=== PATIENT | male | born 1950 | race Caucasian/White ===

== ENCOUNTER 2017-04-01 18:33 | Emergency (ER) | payer MEDICARE, BC ==
[2017-04-01] MEDS ORDERED: Ondansetron 4 MG Tab.DIS PO ONE (18:34)
[2017-04-01] MEDS ORDERED: Ondansetron 4 MG/2 ML SDV IV ONE (18:57)
[2017-04-01] MEDS ORDERED: Sodium Chloride 0.9% 1,000 ML IV ONE ×2 (18:57→21:09)
--- NOTE | 2017-04-01 19:02 | EDM.PDOC ---
ED HPI GENERAL MEDICAL PROBLEM - General Chief Complaint: Gastrointestinal Problem Stated Complaint: AMBULANCE Time Seen by Provider: 04/01/17 18:55 Source of Information: Reports: Patient History Limitations: Reports: No Limitations - History of Present Illness INITIAL COMMENTS - FREE TEXT/NARRATIVE: This 67 yo male patient was brought to the ED by [facility] due to lightheadedness, nausea/vomiting and diarrhea. The patient reports his symptoms started on Sunday and have continued throughout the weekend. The patient reports that earlier today, he passed out when he stood up. The patient reports he has had a 45 year history of loose bowel movement. The patient reports he got lightheaded last week and had a near syncopial episode at that time. The patient reports he has had his flu shot this year. The patient reports he has not been able to keep anything down since . Onset Date: 03/30/17 Duration: Day(s):, Constant, Getting Worse Location: Reports: Generalized Quality: Reports: Other Severity: Moderate Improves with: Reports: None Worsens with: Reports: None Associated Symptoms: Reports: Nausea/Vomiting, Syncope, Other (diarrhea) Middle Epigastric Pain Score (Numeric/FACES): 2 - Related Data Allergies Allergy/AdvReac Type Severity Reaction Status Date / Time No Known Allergies Allergy Verified 04/01/17 18:49 Past Medical History Cardiovascular History: Reports: Hypertension Endocrine/Metabolic History: Reports: Diabetes, Type II Social & Family History - Tobacco Use Smoking Status *Q: Never Smoker - Caffeine Use Caffeine Use: Reports: Coffee, Soda, Tea - Recreational Drug Use Recreational Drug Use: No ED ROS GENERAL - Review of Systems Review Of Systems: ROS reveals no pertinent complaints other than HPI. ED EXAM, GI/ABD - Physical Exam Exam: See Below Exam Limited By: No Limitations General Appearance: Alert, WD/WN, Mild Distress, Thin Eyes: Bilateral: Normal Appearance, EOMI Ears: Normal External Exam, Normal Canal, Hearing Grossly Normal, Normal TMs Nose: Normal Inspection, Normal Mucosa, No Blood Throat/Mouth: Normal Inspection, Normal Lips, Normal Teeth, Normal Gums, Normal Oropharynx, Normal Voice, No Airway Compromise Head: Atraumatic, Normocephalic Neck: Normal Inspection, Supple, Non-Tender, Full Range of Motion Respiratory/Chest: No Respiratory Distress, Lungs Clear, Normal Breath Sounds, No Accessory Muscle Use, Chest Non-Tender Cardiovascular: Normal Peripheral Pulses, Regular Rate, Rhythm, No Edema, No Gallop, No JVD, No Murmur, No Rub GI/Abdominal Exam: Normal Bowel Sounds, Soft, Non-Tender, No Organomegaly, No Distention, No Abnormal Bruit, Pelvis Stable (Male) Exam: Deferred Rectal (Males) Exam: Deferred Back Exam: Normal Inspection, Full Range of Motion, NT Extremities: Normal Inspection, Normal Range of Motion, Non-Tender, Normal Capillary Refill, No Pedal Edema Neurological: Alert, Oriented, CN II-XII Intact, Normal Cognition, Normal Gait, Normal Reflexes, No Motor/Sensory Deficits Psychiatric: Normal Affect, Normal Mood Skin Exam: Warm, Dry, Intact, Normal Color, No Rash Lymphatic: No Adenopathy Course - Vital Signs Last Recorded V/S: Last Vital Signs Temp 37.2 C 04/01/17 21:33 Pulse 86 04/01/17 21:33 Resp 16 04/01/17 21:33 BP 103/46 L 04/01/17 21:33 Pulse Ox 99 04/01/17 21:33 - Orders/Labs/Meds Labs: Laboratory Tests 04/01/17 04/01/17 04/01/17 Range/Units 18:55 18:55 21:54 WBC 11.9 H (5.0-10.0) 10^3/uL RBC 5.64 (4.6-6.2) 10^6/uL Hgb 16.4 (14.0-18.0) g/dL Hct 47.3 (40.0-54.0) % MCV 83.9 (80-100) fL MCH 29.1 (27.0-34.0) pg MCHC 34.7 (33.0-35.0) g/dL Plt Count 218 (150-450) 10^3/uL Neut % (Auto) 76.4 H (42.2-75.2) % Lymph % (Auto) 12.2 L (20.5-50.1) % [place] % (Auto) 11.1 H (2-8) % Eos % (Auto) 0.0 L (1.0-3.0) % Baso % (Auto) 0.3 (0.0-1.0) % Sodium 133 L (135-145) mmol/L Potassium 4.1 (3.6-5.0) mmol/L Chloride 93 L (101-111) mmol/L Carbon Dioxide 22.0 (21.0-31.0) mmol/L Anion Gap 22.1 BUN 46 H (7-18) mg/dL Creatinine 1.4 H (0.6-1.3) mg/dL Est Cr Clr Drug Dosing 49.80 mL/min Estimated GFR (MDRD) 50 BUN/Creatinine Ratio 32.85 Glucose 265 H (74-105) mg/dL Calcium 7.8 L (8.4-10.2) mg/dl Total Bilirubin 0.8 (0.2-1.0) mg/dL AST 28 (10-42) IU/L ALT 18 (10-60) IU/L Alkaline Phosphatase 38 L (42-121) IU/L Total Protein 6.3 L (6.7-8.2) g/dl Albumin 3.3 (3.2-5.5) g/dl Globulin 3.0 Albumin/Globulin Ratio 1.10 Urine Color Yellow (YELLOW) Urine Appearance Slightly cloudy (CLEAR) Urine pH 5.0 (5.0-9.0) Ur Specific [place] 1.020 (1.005-1.030) Urine Protein Negative (NEGATIVE) Urine Glucose (UA) >=1000 H (NEGATIVE) Urine Ketones 15 H (NEGATIVE) Urine Occult Blood Negative (NEGATIVE) Urine Nitrite Negative (NEGATIVE) Urine Bilirubin Small H (NEGATIVE) Urine Urobilinogen 0.2 (0.2-1.0) mg/dL Ur Leukocyte Esterase Negative (NEGATIVE) Urine RBC 0-5 /HPF Urine WBC 0-5 (0-5/HPF) /HPF Ur Epithelial Cells Few /HPF Urine Bacteria Moderate H (0-FEW/HPF) /HPF Meds: Medications Discontinued Medications Generic Name Dose Route Start Last Admin Trade Name Freq PRN Reason Stop Dose Admin Sodium Chloride 1,000 mls @ 999 mls/hr 04/01/17 18:57 04/01/17 19:16 Normal Saline IV 04/01/17 19:57 999 mls/hr .BOLUS ONE Administration Sodium Chloride 1,000 mls @ 999 mls/hr 04/01/17 21:09 04/01/17 21:22 Normal Saline IV 04/01/17 22:09 999 mls/hr .BOLUS ONE Administration Iopamidol 75 ml 04/01/17 20:05 04/01/17 20:11 Isovue-300 (61%) IVPUSH 04/01/17 20:06 75 ml ONETIME ONE Administration Ondansetron HCl 4 mg 04/01/17 18:57 04/01/17 19:16 Zofran IV 04/01/17 18:58 4 mg ONETIME ONE Administration - Re-Assessments/Exams Free Text/Narrative Re-Assessment/Exam: 04/01/17 21:15 Discussed the lab and CT results with the patient. The patient reports he is feeling better. A second liter of IV fluid was ordered for the patient. Departure - Departure Time of Disposition: 22:24 Disposition: Home, Self-Care 01 Condition: Poor Clinical Impression: Gastroenteritis - Discharge Information Instructions: Gastritis, Adult, [id number] Forms: ED Department Discharge Care Plan Goals: The patient was advised of the examination, lab and CT results during the visit. The patient was given 2 liters of IV fluids and a dose of IV Zofran while in the ED. The patient was discharged with Zofran ODT (4 mg) #2 to take 1 by mouth every 6 hours as needed for nausea and a script for Zofran ODT (4 mg) # 20 to take 1 by mouth every 6 hours as needed for nausea. The patient was encouraged to stick to a BRAT diet (Bananas, Rice, Applesauce and [place]) with small frequent sips of fluids. If the patient has any additional symptoms or further concerns, the patient should follow-up with his primary care facility or return to the emergency department.
[2017-04-01] MEDS ORDERED: Iopamidol 612 MG/ML 75 ML Bottle IVPUSH ONE (20:05)
[2017-04-01] MEDS ORDERED: Ondansetron 4 MG Tab.DIS ONE (22:28)
== END 2017-04-01 22:37 | disposition home or self-care (01) ==
LOC: DL.ED 18:33
DX: K52.9 Noninfective gastroenteritis and colitis, unspecified (principal); I10 Essential (primary) hypertension; E11.9 Type 2 diabetes mellitus without complications
CPT/HCPCS: 36415; 74176; 80053; 81001; 85025; 87804; 96361; 96374; 99284; J2405; J7030; A9270-GY; Q9967

== ENCOUNTER 2020-12-02 12:21 | Emergency (ER) | payer MEDICARE, BC ==
--- NOTE | 2020-12-02 12:38 | EDM.PDOC ---
ED HPI GENERAL MEDICAL PROBLEM - General Chief Complaint: General Stated Complaint: DEHYDRATED/ ALMOST PASSED OUT Time Seen by Provider: 12/02/20 12:38 Source of Information: Reports: Patient, Family, Old Records, RN History Limitations: Reports: No Limitations - History of Present Illness INITIAL COMMENTS - FREE TEXT/NARRATIVE: Pt presents to ER from home by POV with c/o lightheadedness, generalized weakness, and feeling "dehydrated". Symptoms began yesterday, and worsened today. During the night he report have one large formed very dark, blackish stool. Today upon standing he experienced a near syncope and fell onto his back but did not lose consciousness. Pt c/o B/L flank pain since the fall. Denies chest pain, palpitations, shortness of breath, N/V, fevers, or chills, or abdominal pain. Onset: Gradual Duration: Constant, Getting Worse Location: Reports: Back, Generalized Quality: Reports: Ache Severity: Severe Improves with: Reports: None Worsens with: Reports: Movement Associated Symptoms: Reports: No Other Symptoms Lower Back Pain Score (Numeric/FACES): 8 - Related Data Allergies Allergy/AdvReac Type Severity Reaction Status Date / Time No Known Allergies Allergy Verified 12/02/20 12:42 Home Meds: Home Meds Clopidogrel [Plavix] 75 mg PO DAILY 12/02/20 [History] Empagliflozin [Jardiance] 25 mg PO DAILY 12/02/20 [History] Fenofibrate,Micronized [Fenofibrate] 134 mg PO DAILY 12/02/20 [History] Insulin Glargine,Hum.Rec.Anlog [Basaglar Kwikpen U-100] 37 unit SQ BEDTIME 12/02/20 [History] atorvaSTATin [Lipitor] 40 mg PO BEDTIME 12/02/20 [History] hydroCHLOROthiazide [Hydrochlorothiazide] 25 mg PO DAILY 12/02/20 [History] metFORMIN HCl [Metformin HCl] 1,000 mg PO DAILY 12/02/20 [History] Past Medical History Cardiovascular History: Reports: CAD, Hypertension, Stents Endocrine/Metabolic History: Reports: Diabetes, Type II Social & Family History - Family History Family Medical History: No Pertinent Family History - Caffeine Use Caffeine Use: Reports: Coffee, Soda, Tea - Living Situation & Occupation Living situation: Reports: with Significant Other Occupation: Retired ED ROS GENERAL - Review of Systems Review Of Systems: Comprehensive ROS is negative, except as noted in HPI. ED EXAM, GENERAL - Physical Exam Exam: See Below Exam Limited By: No Limitations General Appearance: Alert, WD/WN, No Apparent Distress Eye Exam: Bilateral Eye: Normal Inspection (No scleral icterus) Nose: Normal Inspection, Normal Mucosa, No Blood Throat/Mouth: Normal Lips, Normal Teeth, Normal Gums, Normal Oropharynx, Normal Voice, No Airway Compromise, Other (Dry oral mucus membranes) Head: Atraumatic, Normocephalic Neck: Normal Inspection, Supple, Non-Tender, Full Range of Motion Respiratory/Chest: No Respiratory Distress, Lungs Clear, Normal Breath Sounds, No Accessory Muscle Use, Chest Non-Tender Cardiovascular: Normal Peripheral Pulses, Regular Rate, Rhythm, No Edema, No Gallop, No JVD, No Murmur, No Rub GI/Abdominal: Normal Bowel Sounds, Soft, Non-Tender, No Organomegaly, No Distention, No Abnormal Bruit, No Mass (Male) Exam: Deferred Rectal (Males) Exam: Normal Rectal Tone, Black Stool, Heme + Stool Back Exam: Full Range of Motion, CVA Tenderness (L) (mild), CVA Tenderness (R) (mild), Muscle Spasm. No: Vertebral Tenderness Extremities: Normal Inspection, Normal Range of Motion, Non-Tender, Normal Capillary Refill, No Pedal Edema Neurological: Alert, Oriented, CN II-XII Intact, Normal Cognition, Normal Gait, No Motor/Sensory Deficits Psychiatric: Normal Affect, Normal Mood Skin Exam: Warm, Dry, Intact, Normal Color, No Rash. No: Ecchymosis, Jaundice, Petechiae #1 Interpretation EKG Date: 12/02/20 Time: 13:09 Rhythm: Other (SR) Rate (Beats/Min): 80 [place]: LAD-Left [place] Deviation P-Wave: Present QRS: Normal ST-T: Normal QT: Normal [place]/PQ Interval: Borderline short [place] interval Comparison: NA - No Prior EKG Course - Vital Signs Last Recorded V/S: Last Vital Signs Temp 97.8 F 12/02/20 12:34 Pulse 93 12/02/20 12:34 Resp 20 12/02/20 12:34 BP 143/63 H 12/02/20 12:34 Pulse Ox 100 12/02/20 12:34 Orthostatic Blood Pressure [ 79/44 Standing] Orthostatic Blood Pressure [ 105/56 Sitting] Orthostatic Blood Pressure [ 144/62 Supine] Positive orthostatic dizziness. - Orders/Labs/Meds Orders: Active Orders 24 hr Category Date Time Status EKG 12 Lead [EKG Documentation Completion] [RC] STAT Care 12/02/20 13:02 Active Orthostatic Vital Signs [RC] ASDIRECTED Care 12/02/20 13:04 Active Peripheral IV Care [RC] . DIRECTED Care 12/02/20 13:04 Active UA RFX HUI AND CULT IF INDIC [URIN] Stat Lab 12/02/20 13:03 Ordered Pantoprazole [ProTONIX IV] 40 mg Med 12/02/20 13:45 Active Sodium Chloride 0.9% [Normal Saline] 100 ml IV .CONTINUOS Sodium Chloride 0.9% [Saline Flush] Med 12/02/20 13:03 Active 10 ml FLUSH ASDIRECTED PRN Peripheral IV Insertion Adult [OM.PC] Stat Oth 12/02/20 13:02 Ordered Medication Orders Pantoprazole Sodium 40 mg/ (Sodium Chloride) 100 mls @ 20 mls/hr IV .CONTINUOS OLI Last Admin: 12/02/20 13:57 Dose: 20 mls/hr Documented by: JOHANNA Sodium Chloride (Sodium Chloride 0.9% 10 Ml Syringe) 10 ml FLUSH ASDIRECTED PRN PRN Reason: Keep Vein Open Last Admin: 12/02/20 13:57 Dose: 10 ml Documented by: JOHANNA Labs: Laboratory Tests 12/02/20 12/02/20 12/02/20 Range/Units 13:09 13:09 13:09 WBC 15.6 H (5.0-10.0) 10^3/uL RBC 3.36 L (4.6-6.2) 10^6/uL Hgb 9.6 L D (14.0-18.0) g/dL Hct 29.2 L (40.0-54.0) % MCV 86.9 (80-100) fL MCH 28.6 (27.0-34.0) pg MCHC 32.9 L (33.0-35.0) g/dL Plt Count 287 (150-450) 10^3/uL Neut % (Auto) 81.2 H (42.2-75.2) % Lymph % (Auto) 10.4 L (20.5-50.1) % [place] % (Auto) 7.8 (2-8) % Eos % (Auto) 0.2 L (1.0-3.0) % Baso % (Auto) 0.4 (0.0-1.0) % PT 10.7 (9.0-12.0) SEC INR 1.1 (0.9-1.2) APTT 19.4 L (22.0-34.0) SEC Sodium 138 (136-145) mmol/L Potassium 3.4 L (3.5-5.1) mmol/L Chloride 99 (98-107) mmol/L Carbon Dioxide 28 (21-32) mmol/L Anion Gap 14.4 H (7-13) mEq/L BUN 41 H (7-18) mg/dL Creatinine 1.20 (0.70-1.30) mg/dL Est Cr Clr Drug Dosing 53.83 mL/min Estimated GFR (MDRD) 60 BUN/Creatinine Ratio 34.2 (No establ ref range) Glucose 170 H (70-99) mg/dL Calcium 8.5 (8.5-10.1) mg/dL Magnesium 2.1 (1.8-2.4) mg/dL Total Bilirubin 0.8 (0.2-1.0) mg/dL AST 28 (15-37) U/L ALT 35 (16-63) U/L Alkaline Phosphatase 49 (46-116) U/L Troponin I High Sens 12 (<=76) pg/mL Total Protein 6.2 L (6.4-8.2) g/dL Albumin 3.3 L (3.4-5.0) g/dL Globulin 2.9 Albumin/Globulin Ratio 1.14 Amylase 71 (25-115) U/L Lipase 134 (73-393) U/L HEMOCCULT: POSITIVE Meds: Medications Generic Name Dose Route Start Last Admin Trade Name Freq PRN Reason Stop Dose Admin Pantoprazole Sodium 40 mg/ 100 mls @ 20 mls/hr 12/02/20 13:45 12/02/20 13:57 Sodium Chloride IV 20 mls/hr .CONTINUOS OLI Administration Sodium Chloride 10 ml 12/02/20 13:03 12/02/20 13:57 Sodium Chloride 0.9% 10 Ml Syringe FLUSH 10 ml ASDIRECTED PRN Administration Keep Vein Open Discontinued Medications Generic Name Dose Route Start Last Admin Trade Name Freq PRN Reason Stop Dose Admin Sodium Chloride 1,000 mls @ 999 mls/hr 12/02/20 13:03 12/02/20 13:38 Normal Saline IV 12/02/20 14:03 999 mls/hr .BOLUS ONE Administration Pantoprazole Sodium 80 mg 12/02/20 13:31 12/02/20 13:49 Pantoprazole 40 Mg Vial IVPUSH 12/02/20 13:32 80 mg .BOLUS ONE Administration - Re-Assessments/Exams Free Text/Narrative Re-Assessment/Exam: 12/02/20 14:[address] [facility] Dr. Dsouza accepts pt as a direct admit to [facility]. Departure - Departure Time of Disposition: 14:43 Disposition: DC/Tfer to [facility] 02 Condition: Serious Clinical Impression: Upper GI bleed, Postural dizziness with near syncope - Discharge Information *PRESCRIPTION DRUG MONITORING PROGRAM REVIEWED*: Not Applicable *COPY OF PRESCRIPTION DRUG MONITORING REPORT IN PATIENT EDYTA: Not Applicable Forms: ED Department Discharge, Interfacility Transfer EMTALA Sepsis Event Note (ED) - Focused Exam Vital Signs: Vital Signs Temp Pulse Resp BP Pulse Ox 12/02/20 12:34 97.8 F 93 20 143/63 H 100 - My Orders Last 24 Hours: My Active Orders 12/02/20 13:02 EKG 12 Lead [EKG Documentation Completion] [RC] STAT Peripheral IV Insertion Adult [OM.PC] Stat 12/02/20 13:03 UA RFX HUI AND CULT IF INDIC [URIN] Stat Sodium Chloride 0.9% [Saline Flush] 10 ml FLUSH ASDIRECTED PRN 12/02/20 13:04 Orthostatic Vital Signs [RC] ASDIRECTED Peripheral IV Care [RC] . DIRECTED 12/02/20 13:45 Pantoprazole [ProTONIX IV] 40 mg Sodium Chloride 0.9% [Normal Saline] 100 ml IV .CONTINUOS - Assessment/Plan Last 24 Hours: My Active Orders 12/02/20 13:02 EKG 12 Lead [EKG Documentation Completion] [RC] STAT Peripheral IV Insertion Adult [OM.PC] Stat 12/02/20 13:03 UA RFX HUI AND CULT IF INDIC [URIN] Stat Sodium Chloride 0.9% [Saline Flush] 10 ml FLUSH ASDIRECTED PRN 12/02/20 13:04 Orthostatic Vital Signs [RC] ASDIRECTED Peripheral IV Care [RC] . DIRECTED 12/02/20 13:45 Pantoprazole [ProTONIX IV] 40 mg Sodium Chloride 0.9% [Normal Saline] 100 ml IV .CONTINUOS
[2020-12-02] MEDS ORDERED: Sodium Chloride 0.9% 10 ML Syringe FLUSH PRN (13:03)
[2020-12-02] MEDS ORDERED: Sodium Chloride 0.9% 1,000 ML IV ONE (13:03)
[2020-12-02] MEDS ORDERED: Pantoprazole 40 MG Vial IVPUSH ONE (13:31)
[2020-12-02 13:38] LABS: ANION GAP 14.4 mEq/L (7-13)
[2020-12-02 13:45] LABS: PTT,PARTIAL THROMBOPLSTIN TIME 19.4 SEC (22.0-34.0)
[2020-12-02] MEDS ORDERED: Pantoprazole 40 MG in Sodium Chloride 0.9% 100 ML IV SCH (13:45)
== END 2020-12-02 15:21 ==
LOC: DL.ED 12:21
DX: K92.2 Gastrointestinal hemorrhage, unspecified (principal); R55 Syncope and collapse; I25.10 Atherosclerotic heart disease of native coronary artery without angina pectoris; I10 Essential (primary) hypertension; E11.9 Type 2 diabetes mellitus without complications; Z79.02 Long term (current) use of antithrombotics/antiplatelets; Z79.4 Long term (current) use of insulin; Z79.899 Other long term (current) drug therapy
CPT/HCPCS: 36415; 80053; 81003; 82150; 82272; 83690; 83735; 84484; 85025; 85610; 85730; 93005; 96365; 99285; C9113; J7030